=== PATIENT | female | born 1985 | race Hispanic/Latino ===

== ENCOUNTER 2022-02-03 14:43 | Emergency (ER) | payer MEDICAID ==
[2022-02-03] MEDS ORDERED: Dicyclomine 20 MG/2 ML VIAL ONE (15:41)
[2022-02-03] MEDS ORDERED: Ondansetron ODT 4 MG TAB ONE ×2 (15:59→16:01)
== END 2022-02-03 16:33 | disposition home or self-care (01) ==
LOC: ERS 14:43
DX: R11.2 Nausea with vomiting, unspecified (principal); R19.7 Diarrhea, unspecified; F17.210 Nicotine dependence, cigarettes, uncomplicated
CPT/HCPCS: 36416; 96372; 99284; J0500; Q0162

== ENCOUNTER 2022-06-09 17:45 | Emergency (ER) | payer BC, SELFPAY ==
[~2022-06-09 17:45] MED LIST: Iopamidol-370 76% 500 ML 1 ML ONE
[2022-06-09 19:05] LABS: BHCG - Serum Negative (NEGATIVE); Hemoglobin 12.8 g/dL (12.0-16.0); Mean Corpuscular HGB CONC 32.9 g/dL (32.0-36.0); Mean Corpuscular Hemoglobin 27.2 pg (27.0-31.0); Mean Corpuscular Volume 82.7 fL (78.0-98.0); Mean Platelet Volume 8.9 fL (7.4-10.4); Platelet Count 170 thou/uL (130-400); Pregs Control Background? CLEAR/WHITE (CLR/WHITE); Pregs Control Bar Appear? YES (CONTROL BAR); RBC Distribution Width 14.3 % (11.5-14.5); Red Blood Cell (RBC) Count 4.72 mill/uL (4.20-5.40); White Blood Cell (WBC) Count 11.7 thou/uL (4.8-10.8)
[2022-06-09 19:15] LABS: ALT (SGPT) 19 U/L (8-55); AST (SGOT) 17 U/L (5-34); Albumin 3.8 g/dL (3.5-5.0); Alkaline Phosphatase 94 U/L (40-110); Anion Gap 12 mmol/L (10-20); BUN (Urea Nitrogen) 11 mg/dL (7.0-18.7); Bilirubin, Total 0.3 mg/dL (0.2-1.2); Calc. Creatinine Clearance 0 mL/min (70-130); Calcium 9.2 mg/dL (7.8-10.44); Carbon Dioxide 27 mmol/L (22-29); Chloride 103 mmol/L (98-107); Estimated GFR 94; Globulin 3.9 g/dL (2.4-3.5); Glucose 104 mg/dL (70-105); Lipase 28 U/L (8-78); Potassium 4.5 mmol/L (3.5-5.1); Protein, Total 7.7 g/dL (6.0-8.3); Sodium 137 mmol/L (136-145)
[2022-06-09 19:22] LABS: Band 9 % (5-11); Eosinophils 2 % (0-10); Lymphocytes 18 % (21-51); MDiff Complete? YES; Monocytes 5 % (0-10); Neutrophil 63 % (42-75); Platelet Clumps SLIGHT; Platelet Morphology Comment Appears Adequate; RBC Morphology Normal
[2022-06-09 20:29] LABS: Bilirubin Negative (Negative); Blood, Urine Negative (Negative); Clarity Clear (Clear); Glucose, Urine (Dipstick) Normal (Negative); Ketone, Urine Negative (Negative); Leukocyte Negative Leu/uL (Negative); Nitrite Negative (Negative); Protein, Urine (Dipstick) Negative (Neg-Trace); Specific Gravity, Urine 1.021 (1.002-1.036); Urobilinogen Normal mg/dL (Less than 2)
== END 2022-06-09 21:13 | disposition home or self-care (01) ==
LOC: ERS 17:45
DX: N83.201 Unspecified ovarian cyst, right side (principal); N28.9 Disorder of kidney and ureter, unspecified
CPT/HCPCS: 74177; 80053; 81003; 83690; 84703; 85025; 99283; Q9967